=== PATIENT | male | born 2000 ===

== ENCOUNTER 2022-06-15 07:41 | Emergency (ER) | payer SELFPAY ==
[~2022-06-15] VITALS: Ht 182.9 cm; Wt 97.7 kg
[2022-06-15 07:47] VITALS: BP 121/74; TEMP 100.2
[2022-06-15] MEDS ORDERED: MOTRIN 800800 MG/TAB PO (09:16)
[2022-06-15 09:28] VITALS: PULSE 98
== END 2022-06-15 09:28 | disposition home or self-care (01) ==
LOC: COL.ER 07:41
DX: U07.1 COVID-19 (principal); Z28.310 Unvaccinated for COVID-19